=== PATIENT | male | born 1975 | race Caucasian/White ===

== ENCOUNTER 2025-05-02 18:53 | Emergency (ER) | payer OTHER ==
[~2025-05-02] VITALS: Ht 185.4 cm; Wt 102.1 kg
[2025-05-02 18:57] VITALS: O2SAT 99
[2025-05-02] MEDS: ACETAMINOPHEN 500MG TABLET PO ONE (21:18)
[2025-05-02] MEDS: ONDANSETRON 4MG ODT PO ONE (21:18)
[2025-05-02] MEDS ORDERED: ONDA-241 MT (22:03)
[2025-05-02 22:25] VITALS: BP 112/87; PULSE 78; RESP 16; TEMP 37; O2SAT 97
== END 2025-05-02 22:27 | disposition home or self-care (01) ==
LOC: ER 18:53
DX: S09.90XA Unspecified injury of head, initial encounter (principal); E78.00 Pure hypercholesterolemia, unspecified; I10 Essential (primary) hypertension; Z98.890 Other specified postprocedural states; W22.09XA Striking against other stationary object, initial encounter; Y93.89 Activity, other specified; Y92.89 Other specified places as the place of occurrence of the external cause; Y99.8 Other external cause status
CPT/HCPCS: 99284; 70450; Q0162